=== PATIENT | female | born 1985 | race Caucasian/White ===

== ENCOUNTER 2017-01-18 04:54 | Emergency (ER) | payer MEDICAID, OTHER ==
[~2017-01-18] VITALS: Ht 162.6 cm; Wt 61.5 kg
[2017-01-18 04:59] VITALS: Ht 162.6 cm; Wt 61.5 kg
--- NOTE | 2017-01-18 05:17 | ERD ---
ER Documentation Chief Complaint Date/Time DATE: 01/18/17 TIME: 05:16 Chief Complaint fever, ST, body pain x 1 night HPI 31-year-old female presents to the emergency room for sore throat, productive cough, fever, generalized body ache for about 1 day. Exposed to who has symptoms of upper respiratory infection. Denies headache, loss of consciousness, dizziness, blurry vision, changes in vision, photophobia, facial pain, ear pain, throat pain, difficulty swallowing, neck pain, shoulder pain, chest pain, hemoptysis, abdominal pain, back pain, loss of appetite, nausea, vomiting, hematochezia, diarrhea, constipation, urinary symptoms, , the possibility of being , bladder and bowel incontinences, extremity weakness, extremity tenderness, numbness or tingling sensation, difficulty walking, recent travel, recent antibiotic use in the last 3 months. Allergy: No known drug allergies. PMH: Denies. Family medical history: Denies. AO LMP: 12/25/2016 Medications: Denies. Surgery: Denies. Primary Social History: Not working at this time. Denies smoking, use of alcohol, use of illegal drugs. ROS All systems reviewed and are negative except as per history of present illness. Medications Home Meds Active Scripts Albuterol Sulfate* (Proair HFA*) 8.5 Gm Hfa.aer.ad, 2 PUFF INH Q4, #1 INHALER Prov:PASILABAN,KLAR F 01/18/17 Acetaminophen* (Tylophen*) 500 Mg Capsule, 1 CAP PO Q6H Y for PAIN AND OR ELEVATED TEMP, #20 CAP Prov:PASILABAN,KLAR F 01/18/17 Ibuprofen* (Motrin*) 600 Mg Tab, 600 MG PO Q6, #30 TAB Prov:PASILABAN,KLAR F 01/18/17 Azithromycin* (Zithromax*) 250 Mg Tablet, 250 MG PO .JunePACK DIRECTED, #6 TAB TAKE 500 MG (2 TABS) THE FIRST DAY THEN 250 MG (1 TAB) DAYS 2-5 Prov:PASILABAN,KLAR F 01/18/17 Allergies Allergies: Coded Allergies: No Known Drug Allergies (Verified Allergy, Unknown, 01/18/17) Physical Exam Vitals Vital Signs Date Time Temp Pulse Resp B/P Pulse Ox O2 Delivery O2 Flow Rate FiO2 01/18/17 04:59 101.7 129 20 136/81 98 Physical Exam CONSTITUTIONAL: Well-appearing; well-nourished; in no apparent distress. HEAD: Normocephalic; atraumatic. EYES: Conjunctiva clear, sclera non-icteric, EOM intact. PERRL Ears: Hearing intact. EACs clear, TMs non-bulging, non-inflamed, translucent & mobile, ossicles normal appearance, No obstructions, no erythema, no discharges Nose: No obstructions. No polyps. No external lesions. Mucosa non-inflamed. No external lesions, septum and turbinates normal. No rhinorrhea. No discharges. Frontal sinus is non-tender to palpation. Maxillary sinus is non-tender to palpation. MOUTH: Moist mucous membranes, no lesion, no obstructions, no vesicles, no thrush, patent airway Throat: Uvula in midline. Right tonsil is +2 with erythema, no exudate. Left tonsil is +2 with erythema, no exudate. Tolerating secretions well. No difficulty swallowing. Good gag reflex. Patent airway. Speaks full and clear sentences. Neck: Supple, without lesions, bruits, or adenopathy. No mass. Thyroid non- enlarged and non-tender to palpation. CHEST: Symmetrical chest. Respirations even and not labored. No retractions noted. CARDIOVASCULAR: Normal S1, S2. RRR. No murmurs, gallops. RESPIRATORY: Normal chest excursion with respiration; breath sounds clear and equal bilaterally; no wheezes, rhonchi, or rales. Breathing even and unlabored. Speaking in clear, full, and complete sentences w/ ease. ABDOMEN: Normal bowel sounds normal. Soft, round, non-distended, non-guarding, no tenderness, no rebound, no organomegaly, no masses, no pulsating abdominal mass. No hernia. No peritoneal signs. : No CVA tenderness. BACK: Symmetrical shoulder. Spine is midline without deformity, tenderness. No evidence of trauma or deformity. PELVIS: Stable pelvis. No evidence of trauma or deformity. MUSCULOSKELETAL: Normal gait and station. No misalignment, asymmetry, crepitation, defects, tenderness, masses, effusions, decreased range of motion, instability, atrophy or abnormal strength or tone in the head, neck, spine, ribs , pelvis or extremities. No calf tenderness. NEUROVASCULAR: Distal pulses are present. Pedal pulse are present, equal, and normal. Capillary refills are < 2 seconds. NEUROLOGIC: Alert and oriented x4. Speaks full and clear sentences. Cranial Nerves II-XII normal. Sensation to pain, touch, and proprioception normal. Grossly unremarkable. No neurologic deficits. Romberg test is negative. PSYCHOLOGICAL: The patients mood and manner are appropriate. No hallucinations , delusions. Not SI. Not HI. Has the capacity to decide for self SKIN: Normal for age and ethnicity; warm; dry; good turgor; no apparent lesions or exudates. No rashes, hives, discoloration. Intact. Results 24 hrs Laboratory Tests Test 01/18/17 05:04 Bedside Glucose 98mg/dL Current Medications Medications (Trade) Dose Ordered Sig/Rogelio Route PRN Reason Start Time Stop Time Status Last Admin Dose Admin Ibuprofen (Motrin) 600 mg ONCE ONCE PO 01/18/17 05:30 01/18/17 05:31 DC 01/18/17 05:28 Acetaminophen (Tylenol Tab) 500 mg ONCE STAT PO 01/18/17 05:27 01/18/17 05:28 DC Procedures/MDM Examination: Please see physical examination. Disease process, medical treatment was explained to the patient and family member. They verbalized understanding and agreed with medical treatment, and follow-up care. Treatment: Motrin. Tylenol. Re-evaluation: Denies pain. Tolerating secretions. No difficulty swallowing. Patent airway. Speaks full and clear sentences. Respirations even and unlabored. Lung sounds are clear to auscultation. Consultation: None. Differential diagnosis: Pneumonia versus bronchitis versus upper respiratory infection versus sinusitis versus tonsillitis Medical decision makin-year-old female presents to the emergency room for sore throat, productive cough, fever, generalized body ache for about 1 day. Exposed to who has symptoms of upper respiratory infection. Medications prescribed are the following: Azithromycin. Motrin. Tylenol. Pro- air. Patient and family member are made aware of the side effects and adverse reactions of the medications prescribed. Instructed on when to seek emergent and medical attention in case allergic/anaphylactic reactions or severe side effects and or adverse reactions to medications. Patient and family member verbalized understanding. Patient instructed Instructed to follow-up with his PCP in 24-48 hours. Instructed to Call 911 for chest pain, shortness of breath. Advised to come back here in ED as soon as possible for severity of symptoms which includes but not limited to: any new symptoms; shortness of breath/difficulty of breathing; cardiovascular changes; severe gastrointestinal symptoms; signs and symptoms of bleeding and or infection; signs of compartment syndrome/neurovascular changes; neurological changes/deficits. Patient and family member verbalized understanding. Upon discharge, patient is alert and oriented x 4, speaks full and clear sentences, denies pain, has no neurological deficits, has no neurovascular deficits, difficulty of breathing. Breathing even and unlabored. Lung sounds are clear to auscultation. Heart rate: Regular rate and rhythm. Not in distress. Appears comfortable. Ambulatory with steady gait. Appears satisfied with care provided here in ED. Departure Diagnosis: Primary Impression: Acute tonsillitis Additional Impression: Bronchitis Condition: Good Additional Instructions: Patient instructed Instructed to follow-up with his PCP in 24-48 hours. Instructed to Call 911 for chest pain, shortness of breath. Advised to come back here in ED as soon as possible for severity of symptoms which includes but not limited to: any new symptoms; shortness of breath/difficulty of breathing; cardiovascular changes; severe gastrointestinal symptoms; signs and symptoms of bleeding and or infection; signs of compartment syndrome/neurovascular changes; neurological changes/deficits. Patient and family member verbalized understanding. JEROMY PAIZ Jan 18, 2017 05:17
[2017-01-18] MEDS ORDERED: AZIT250T94 PO (05:18)
[2017-01-18] MEDS ORDERED: IBUP-1542 PO (05:19)
[2017-01-18] MEDS ORDERED: ACET500C5 PO (05:19)
[2017-01-18] MEDS ORDERED: ACETAMINOPHEN 500 MG TAB PO STA (05:27)
[2017-01-18] MEDS ORDERED: ALBU8.5H3 INH (05:27)
[2017-01-18] MEDS ORDERED: IBUPROFEN 600 MG TAB PO ONE (05:30)
[2017-01-18 06:06] VITALS: TEMP 100.1
== END 2017-01-18 06:06 | disposition home or self-care (01) ==
LOC: FTE 04:54
DX: J03.90 Acute tonsillitis, unspecified (principal); J20.9 Acute bronchitis, unspecified; E11.9 Type 2 diabetes mellitus without complications
CPT/HCPCS: 82962; Z7502; Z7610; 99284